=== PATIENT | female | born 1990 | race Caucasian/White ===

== ENCOUNTER → 2020-03-28 | Outpatient (CLI) | payer BC ==
[~2020-03-28] VITALS: Ht 182.9 cm; Wt 90.0 kg
== END | disposition home or self-care (01) ==
LOC: LDOP 11:52
PROVIDERS: ATTEND Obstetrics & Gynecology
DX: O36.8130 Decreased fetal movements, third trimester, not applicable or unspecified (principal); Z3A.38 38 weeks gestation of pregnancy
CPT/HCPCS: 59025; 76819; 99211; G0463

== ENCOUNTER 2020-03-31 15:14 | Inpatient (IN) | payer BC ==
[~2020-03-31] VITALS: Ht 182.9 cm; Wt 86.3 kg
[2020-04-03] MEDS ORDERED: LACTATED RINGERS 1,000 ML IV SCH (10:33)
[2020-04-03] MEDS ORDERED: SODIUM CITRATE/CITRIC ACID 30 ML UDC ONE (10:38)
[2020-04-03] MEDS ORDERED: NEWBORN KIT ONE (10:38)
[2020-04-03] MEDS ORDERED: METOCLOPRAMIDE 5 MG/ML, 2ML ONE (10:38)
[2020-04-03] MEDS ORDERED: OXYTOCIN 30U/ 0.9% NaCL 500ML 500 ML ONE ×3 (10:38→15:00)
[2020-04-03] MEDS ORDERED: METOCLOPRAMIDE 5 MG/ML, 2ML IV ONE (11:00)
[2020-04-03] MEDS ORDERED: LACTATED RINGERS 1,000 ML IVBOLUS ONE (11:00)
[2020-04-03] MEDS ORDERED: SODIUM CITRATE/CITRIC ACID 30 ML UDC PO ONE (11:00)
[2020-04-03] MEDS ORDERED: morphine SULFATE/PF 0.5 MG/ML, 10ML ONE (11:25)
[2020-04-03 11:33] VITALS: BP 128/83
[2020-04-03 12:12] LABS: MEAN CORPUSCULAR HEMOGLOBIN 30.5 pg (27.0-34.8); MEAN CORPUSCULAR HGB CONC 33.7 g/dL (32.4-35.8); MEAN CORPUSCULAR VOLUME 90.5 fL (80-100); RED BLOOD COUNT 3.74 x10^6/uL (3.82-5.3); RED CELL DISTRIBUTION WIDTH 13.6 % (9.6-15.2)
[2020-04-03 12:13] LABS: BASOPHILS # (AUTO) 0.02 x10^3/uL (0-0.1); BASOPHILS % (AUTO) 0 % (0-1); EOSINOPHILS # (AUTO) 0.03 x10^3/uL (0-0.4); EOSINOPHILS % (AUTO) 0 % (1-7); LYMPHOCYTES # (AUTO) 1.28 x10^3/uL (1-3.4); LYMPHOCYTES % (AUTO) 15 % (22-44); MONOCYTES # (AUTO) 0.45 x10^3/uL (0.2-0.8); MONOCYTES % (AUTO) 5 % (2-9); NEUTROPHILS # (AUTO) 6.81 x10^3/uL (1.8-6.8); NEUTROPHILS % (AUTO) 79 % (42-75)
[2020-04-03 12:21] LABS: MD MORPH REVIEW ONLY; MEAN PLATELET VOLUME 10.3 fL (7.4-10.4); PLATELET COUNT 150 x10^3/uL (130-400)
[2020-04-03 12:22] LABS: <PLATELET ESTIMATE> ADEQUATE; <RBC MORPHOLOGY> NORMAL; LARGE PLATELETS 2+
[2020-04-03] MEDS ORDERED: WATER-INJECTION,STERILE 10 ML IV ONE (13:24)
[2020-04-03] MEDS ORDERED: ONDANSETRON 2MG/ML, 2ML ONE ×2 (13:24)
[2020-04-03] MEDS ORDERED: OXYTOCIN 10 UNITS/ML, 1ML ONE ×2 (13:24→13:25)
[2020-04-03] MEDS ORDERED: EPHEDRINE 50 MG/ML, 1ML ONE (13:24)
[2020-04-03] MEDS ORDERED: PHENYLEPHRINE 10 MG/ML ONE (13:24)
[2020-04-03] MEDS ORDERED: CEFAZOLIN 1,000 MG ONE (13:24)
[2020-04-03] MEDS ORDERED: DIPHENHYDRAMINE 50 MG/ML, 1ML ONE (13:25)
[2020-04-03] MEDS ORDERED: GLYCOPYRROLATE 0.2MG/1ML, 5ML ONE ×2 (13:25)
[2020-04-03] MEDS ORDERED: MISOPROSTOL 200 MCG TABLET PR PRN (13:30)
[2020-04-03] MEDS ORDERED: OXYcodone IR 5MG TABLET PO PRN ×2 (13:30)
[2020-04-03] MEDS ORDERED: morphine SULFATE 10 MG/ML, 1ML IVPush PRN ×2 (13:30)
[2020-04-03] MEDS ORDERED: BISACODYL 10 MG SUPP PR PRN (13:30)
[2020-04-03] MEDS ORDERED: ONDANSETRON 2MG/ML, 2ML IV PRN (13:30)
[2020-04-03] MEDS ORDERED: CALCIUM CARBONATE 500 MG TAB.CHEW PO PRN (13:30)
[2020-04-03] MEDS: LACTATED RINGERS 1,000 ML IV SCH ×4 (14:00→23:27)
[2020-04-03] MEDS ORDERED: KETOROLAC 30 MG/1 ML ONE (14:02)
[2020-04-03] MEDS ORDERED: METHYLERGONOVINE 0.2MG TABLET ONE (14:11)
[2020-04-03] MEDS ORDERED: MISOPROSTOL 200 MCG TABLET ONE (14:12)
[2020-04-03] MEDS ORDERED: METHYLERGONOVINE 0.2 MG/ML IM ONE (14:12)
[2020-04-03] MEDS: KETOROLAC 30 MG/1 ML IV SCH ×2 (14:20→20:20)
[2020-04-03] MEDS: OXYTOCIN 30U/ 0.9% NaCL 500ML 500 ML IV SCH ×2 (15:03→23:27)
[2020-04-03] MEDS ORDERED: METHYLERGONOVINE 0.2 MG/ML IM PRN (15:30)
[2020-04-03] MEDS ORDERED: MISOPROSTOL 200 MCG TABLET PR ONE (15:30)
[2020-04-03 15:46] VITALS: BP 117/74
[2020-04-03] MEDS: ACETAMINOPHEN 500 MG TABLET PO SCH ×2 (16:08→22:19)
[2020-04-03 19:30] VITALS: BP 102/66
[2020-04-03] MEDS: DOCUSATE 100 MG CAPSULE PO PRN (20:20)
[2020-04-03] MEDS: SIMETHICONE 80 MG CHEW TAB PO PRN (20:21)
[2020-04-03 21:16] LABS: MEAN CORPUSCULAR HEMOGLOBIN 30.9 pg (27.0-34.8); MEAN CORPUSCULAR HGB CONC 33.9 g/dL (32.4-35.8); MEAN PLATELET VOLUME 9.8 fL (7.4-10.4); PLATELET COUNT 117 x10^3/uL (130-400); RED BLOOD COUNT 2.43 x10^6/uL (3.82-5.3); RED CELL DISTRIBUTION WIDTH 14.3 % (9.6-15.2)
[2020-04-03 21:38] LABS: BASOPHILS # (AUTO) 0.02 x10^3/uL (0-0.1); BASOPHILS % (AUTO) 0 % (0-1); EOSINOPHILS # (AUTO) 0.01 x10^3/uL (0-0.4); EOSINOPHILS % (AUTO) 0 % (1-7); LYMPHOCYTES # (AUTO) 1.08 x10^3/uL (1-3.4); LYMPHOCYTES % (AUTO) 8 % (22-44); MD SCAN; MONOCYTES # (AUTO) 0.41 x10^3/uL (0.2-0.8); MONOCYTES % (AUTO) 3 % (2-9); NEUTROPHILS # (AUTO) 12.14 x10^3/uL (1.8-6.8); NEUTROPHILS % (AUTO) 89 % (42-75)
[2020-04-04 00:40] VITALS: BP 99/63
[2020-04-04 02:00] VITALS: BP 110/72
[2020-04-04] MEDS: KETOROLAC 30 MG/1 ML IV SCH ×2 (02:08→08:16)
[2020-04-04] MEDS: SIMETHICONE 80 MG CHEW TAB PO PRN ×3 (02:08→19:45)
[2020-04-04] MEDS: ACETAMINOPHEN 500 MG TABLET PO SCH ×3 (04:36→19:45)
[2020-04-04] MEDS: HEPARIN 5,000 UNITS/ML, 1ML SQ SCH ×2 (05:13→17:03)
[2020-04-04] MEDS: LACTATED RINGERS 1,000 ML IV SCH ×5 (05:27→21:27)
[2020-04-04 06:25] LABS: MEAN CORPUSCULAR HEMOGLOBIN 30.4 pg (27.0-34.8); MEAN CORPUSCULAR HGB CONC 33.4 g/dL (32.4-35.8); MEAN CORPUSCULAR VOLUME 90.8 fL (80-100); MEAN PLATELET VOLUME 10.1 fL (7.4-10.4); PLATELET COUNT 119 x10^3/uL (130-400); RED BLOOD COUNT 2.35 x10^6/uL (3.82-5.3); RED CELL DISTRIBUTION WIDTH 13.8 % (9.6-15.2)
[2020-04-04 07:03] LABS: BASOPHILS # (AUTO) 0.03 x10^3/uL (0-0.1); BASOPHILS % (AUTO) 0 % (0-1); EOSINOPHILS # (AUTO) 0.01 x10^3/uL (0-0.4); EOSINOPHILS % (AUTO) 0 % (1-7); LYMPHOCYTES # (AUTO) 0.97 x10^3/uL (1-3.4); LYMPHOCYTES % (AUTO) 9 % (22-44); MD SCAN; MONOCYTES # (AUTO) 0.57 x10^3/uL (0.2-0.8); MONOCYTES % (AUTO) 5 % (2-9); NEUTROPHILS % (AUTO) 86 % (42-75)
[2020-04-04 08:15] VITALS: BP 110/66
[2020-04-04] MEDS: FERROUS SULFATE 325 MG TABLET PO SCH ×2 (08:16→16:32)
[2020-04-04] MEDS: OXYTOCIN 30U/ 0.9% NaCL 500ML 500 ML IV SCH ×2 (09:27→19:27)
[2020-04-04 12:00] VITALS: BP 127/81
[2020-04-04] MEDS: IBUPROFEN 600 MG TABLET PO SCH ×2 (13:22→19:45)
[2020-04-04] MEDS: PRENATAL VIT/IRON/FA 1 EACH TABLET PO SCH (13:22)
[2020-04-04] MEDS: FERROUS GLUCONATE 324 MG TABLET PO SCH (17:02)
[2020-04-04 19:30] VITALS: BP 114/68
[2020-04-04] MEDS: DOCUSATE 100 MG CAPSULE PO PRN (19:45)
[2020-04-05 01:15] VITALS: BP 119/78
[2020-04-05] MEDS: IBUPROFEN 600 MG TABLET PO SCH ×2 (01:23→07:35)
[2020-04-05] MEDS: ACETAMINOPHEN 500 MG TABLET PO SCH ×2 (01:23→07:35)
[2020-04-05] MEDS: SIMETHICONE 80 MG CHEW TAB PO PRN ×2 (01:23→07:35)
[2020-04-05] MEDS: HEPARIN 5,000 UNITS/ML, 1ML SQ SCH (05:20)
[2020-04-05] MEDS: LACTATED RINGERS 1,000 ML IV SCH ×2 (05:27)
[2020-04-05] MEDS: OXYTOCIN 30U/ 0.9% NaCL 500ML 500 ML IV SCH (05:27)
[2020-04-05] MEDS: FERROUS GLUCONATE 324 MG TABLET PO SCH (07:35)
[2020-04-05] MEDS: PRENATAL VIT/IRON/FA 1 EACH TABLET PO SCH (07:35)
[2020-04-05] MEDS: DOCUSATE 100 MG CAPSULE PO PRN (07:35)
[2020-04-05] MEDS: FERROUS SULFATE 325 MG TABLET PO SCH (08:00)
[2020-04-05 08:39] VITALS: BP 125/78
[2020-04-05] MEDS ORDERED: OXYC-302 PO (13:16)
[2020-04-05] MEDS ORDERED: IBUP-1222 PO (13:17)
[2020-04-05] MEDS ORDERED: FERR325T23 PO (13:18)
== END 2020-04-05 13:45 | disposition home or self-care (01) | DRG 787 ==
LOC: LDIP 04-03 10:05 → 2NW 04-03 15:44
PROVIDERS: ADMIT Obstetrics & Gynecology; ATTEND Obstetrics & Gynecology
PROC: 10D00Z1 Extraction of Products of Conception, Low, Open Approach (ICD-10-PCS; principal; 2020-04-03)
DX: O36.63X0 Maternal care for excessive fetal growth, third trimester, not applicable or unspecified (principal); O72.1 Other immediate postpartum hemorrhage; Z37.0 Single live birth; Z3A.39 39 weeks gestation of pregnancy; O99.03 Anemia complicating the puerperium; D64.9 Anemia, unspecified
CPT/HCPCS: 36415; 85025; 86592; 86850; 86900; G0378; J0690; J1644; J1885; J2274; J2405; J1200; J2370; J2590; J2765; J7120; U0001-CS